=== PATIENT | female | born 1990 | race Native Hawaiian/Other Pacific Islander ===

== ENCOUNTER 2021-10-22 14:05 | Outpatient (CLI) | payer OTHER ==
[2021-10-22 15:06] VITALS: BP 118/79
--- NOTE | 2021-10-22 15:06 | SLEEP CARE CONSULTATION ---
Information from patient questionnaire entered by Cha Randle MA. I have reviewed and concur with the information entered by Cha Randle MA. This document represents the service I personally performed and the decisions made by me, Noa Sneed ARNP. History of Present Illness Service Date and Time: 10/22/2021 1405 Reason for Visit: New patient (ONSET 04/29/2021, ON CPAP, ) Chief Complaint: reports: Snoring, Excessive daytime sleepiness, Observed pauses in breathing, Fatigue, Frequent awakenings at night Date of Onset: DEC 2019 Usual bedtime: 8-9 PM Time it takes to fall asleep: 1 PLUS HOUR Snores at night: Yes Observed to quit breathing while asleep: Yes Sleeps alone due to snoring: No Number of times waking at night: 3 PLUS Reasons for waking at night: reports: Snoring, Gasping for air, Pain, Bathroom, Other (unknown reasons). denies: Choking Toss, Turn, or Twitch while sleeping: Yes Recalls having dreams: Yes Usually gets out of bed at: 0700 Feels refreshed in the morning: No Morning headache: Yes (2-3 times a week; last couple hours to late afternoon) Sleepy or fatigued during the day: Yes (some unintentional naps) Ever fallen asleep while driving: Yes (drowsy driving, no accidents) Takes day naps: Yes (just weekends for 3 hrs or more) Dreams during day naps: Yes Prior sleep studies: No Additional HPI information: I had the pleasure of seeing HARDIK WONG today regarding the possibility of her having a sleep disorder. Her current complaints are excessive daytime sleepiness, fatigue, frequent awakenings at night, observed pauses in breathing and snoring. She was recommended to have a sleep study after she had her c- sections, last one in 2019. She also is seeing an ENT to have her tonsils removed because they become very large. She also snores loudly and her has told her that she stops breathing at night in her sleep. Her snore is much louder when her tonsils are swollen. She has woke herself up gasping for air and choking too. - Parasomnia Symptoms Ever been unable to move upon waking from sleep: Yes (rare) Walks in sleep: No Talks in sleep: Yes Ever acted out dreams in sleep: Yes Ever felt weak in the knees when startled or emotional: No Bothered by creepy, crawly, restless sensations in legs: No Problems with memory or concentration: Yes (both) Subjective Initial [place] Sleepiness Scale score: 16 (10/22/2021) Past Medical History Past Medical History: reports: Anxiety, Depression, Other (2 Csections, 1 Vback; jaw surgery 2019; post preeclampsia with some HTN for year after , now resolved) Social History The patient's occupation is a [employer]. Patient is and lives in . Have you smoked in the past 12 months: Yes Cigarettes per day (20/pack): 35 Years of smokin Smoking Pack Years: 1.7 Alcohol use: Yes Alcohol amount and frequency: 2 X YEARLY Caffeine use: No Family History Family history of sleep disordered breathing: Yes Family Hx Sleep Apnea: Mother: Snoring, Father: Snoring, Sibling: Snoring Allergies and Home Medications Drug allergies reviewed: Yes (Naproxen) Home medication list reviewed: Yes Allergy and home medication list: Medications: Cyclobenzaprine Celexa Albuterol inhaler, prn Review of Systems Weight gain over past 5 years: 30 lbs Cardiovascular: reports: high blood pressure, leg or foot swelling Respiratory: reports: shortness of breath, wheeze, chronic cough Neurological: reports: headaches Psychiatric: reports: anxiety, depression Ear/Nose/Throat: reports: nasal congestion, sinus problems, wisdom teeth removed. denies: tonsillectomy Endocrine: reports: sluggishness, too hot or cold, increased urination. denies: thyroid disease Musculoskeletal: reports: joint pain, neck pain, back pain, joint swelling Immunologic: reports: sneezing Physical Exam Vital signs obtained and entered by: Monster RANDLE CMA [facility] Blood Pressure: 118/79 (RESP 20, PULSE 71, RIGHT) Heart Rate: 74 O2 Saturation: 98 Height: 5 ft 2 in Weight: 196 lb (CLOTHES) Body Mass Index: 35.8 BMI Classification: Obese Neck circumference: 15 (INCHES) Mouth and throat: normal Soft palate: long Hard palate: normal Uvula: normal Uvula visualization: 50% Mallampati Class II Tongue: enlarged in size with teeth smith on lateral edges Tonsils: 1+ Neck: normal w/o lymphadenopathy or thyromegaly Heart: regular rate and rhythm Lungs: clear bilaterally Impression and Plan 1. Suspected Obstructive Sleep Apnea-Hypopnea Syndrome, as suggested by a history of loud and irregular snoring, observed cessation of breath while asleep, gasping or choking in sleep, morning headache, unrefreshed sleep, cognitive impairment, and excessive daytime sleepiness. Narrow oropharynx and obesity are common predisposing factors for obstructive sleep apnea-hypopnea syndrome. I recommend proceeding to polysomnography to confirm the diagnosis and to assess severity. If the patient has significant sleep disordered breathing, a manual CPAP titration study will also be performed to find the optimal treatment pressure. I informed the patient of what the sleep studies involve and after some discussion, obtained agreement to proceed. The pathophysiology of obstructive sleep apnea-hypopnea syndrome was discussed with the patient and health risks of cardiovascular and cerebrovascular disease if not treated. Risks of drowsy driving discussed in detail and patient advised to avoid long distance driving and to felt puller at the first sign of drowsiness. Patient agreed to plan. * Schedule polysomnography * Avoid long distance driving or driving when feeling sleepy. * Avoid alcohol, sedative and muscle relaxant around bedtime. * Attempt to lose weight. * Review instructions provided by trained office staff on how to prepare for the sleep study. * Return for follow-up after sleep study completed. Counseling Topics: Weight loss health impact Visit Type: In Office Time Spent with Patient (minutes): 32 Provider Statement: I spent 100% of the Face to Face Visit with the patient with greater than 50% spent counseling the patient and coordination of care.
== END 2021-10-22 14:06 | disposition home or self-care (01) ==
LOC: SC 14:05
PROVIDERS: ATTEND Nurse Practitioner Family
DX: R06.83 Snoring (principal); G47.8 Other sleep disorders; R06.81 Apnea, not elsewhere classified; R51.9 Headache, unspecified; G47.10 Hypersomnia, unspecified; R53.83 Other fatigue; F32.A Depression, unspecified; F17.210 Nicotine dependence, cigarettes, uncomplicated; E66.9 Obesity, unspecified; Z68.35 Body mass index [BMI] 35.0-35.9, adult
CPT/HCPCS: 99203; 99212

== ENCOUNTER 2022-02-21 20:37 | Outpatient (CLI) | payer OTHER | END 2022-02-21 20:38 | disposition home or self-care (01) | LOC: SC 20:37 | PROVIDERS: ATTEND Nurse Practitioner Family | DX: R06.83 Snoring (principal); G47.8 Other sleep disorders; R06.81 Apnea, not elsewhere classified; R51.9 Headache, unspecified; G47.10 Hypersomnia, unspecified; R53.83 Other fatigue; F32.A Depression, unspecified | CPT/HCPCS: 95810 ==